=== PATIENT | female | born 1980 | race Caucasian/White ===

== ENCOUNTER 2020-09-04 13:31 | Emergency (ER) | payer OTHER, SELFPAY ==
--- NOTE | ~2020-09-04 | CT_ITS ---
EXAMINATION: CT abdomen pelvis wo con EXAM DATE: 09/04/2020 14:34 INDICATION: Flank pain, vomiting, hematuria. TECHNIQUE: Spiral CT of the abdomen and pelvis was performed without contrast. Axial, coronal and sag ittal images were reviewed. The dose-length product (DLP) for this examination was 173.21 mGy-cm. T he exposure was tailored according to patient size (auto mA exposure control), and iterative reconstr uction (ASIR) was used as additional dose reduction technique. Comparison is made to prior examinatio n from 12/01/2014. FINDINGS: There is moderate bilateral perinephric fat stranding without nephrolithiasis or hydronephr osis. This could indicate bilateral pyelonephritis, recommend correlating with urinalysis. Finding is new compared to 2015. The uterus and ovaries are unremarkable, no adnexal mass. The bladder is unr emarkable. The liver, spleen, adrenal glands and pancreas are unremarkable. Gallbladder is unremark able. No biliary obstruction. There is no retroperitoneal or pelvic lymphadenopathy. The appendix is not positively visualized. There is no pericecal inflammatory change to suggest appe ndicitis. The stomach and small bowel are unremarkable. There is expected amount of colonic stool. No free intraperitoneal gas. The heart is normal in size. There are no pericardial or pleural e ffusions. The lung bases are unremarkable. There are no osteoblastic or osteolytic lesions identifi ed. IMPRESSION: Moderate bilateral perinephric fat stranding could indicate pyelonephritis. Correlate wit h urinalysis. No hydronephrosis. Reviewed, dictated and finalized at location A. IMPRESSION: Moderate bilateral perinephric fat stranding could indicate pyelone phritis. Correlate with urinalysis. No hydronephrosis.
[2020-09-04 13:52] LABS: Basophils Percent Auto 0.3 % (0.2-1.2); Eosinophils Absolute Auto 0.1 K/mm3 (0-0.3); Eosinophils Percent Auto 0.4 % (0-4.4); Hematocrit 40.9 % (37.0-47.0); Hemoglobin 13.7 g/dL (12.0-15.0); Immature Granulocyte Absolute 0.06 K/mm3 (0.00-0.031); Immature Granulocyte Percent A 0.4 % (0-0.5); Lymphocytes Absolute Auto 1.44 K/mm3 (0.9-3.2); Mean Corpuscular HGB Conc 33.5 g/dl (32-36); Mean Corpuscular Hemoglobin 29.9 pg (26-34); Mean Corpuscular Volume 89.3 fl (80-100); Mean Platelet Volume 9.6 fl (7.4-10.4); Monocytes Absolute Auto 1.2 K/mm3 (0.1-0.6); Monocytes Percent Auto 8.4 % (2.6-8.5); Neutrophils Absolute Auto 11.6 K/mm3 (1.3-6.7); Neutrophils Percent Auto 80.5 % (45.5-73.1); Platelet Count Result 238 k/mm3 (150-375); Red Blood Count 4.58 M/mm3 (4.2-5.4); Red Cell Distribution Width 12.2 % (11.5-14.5); White Blood Count 14.5 K/mm3 (4.5-10.0)
[2020-09-04 13:55] VITALS: BP 124/64; PULSE 79; RESP 14; TEMP 36.2; O2SAT 99
[2020-09-04 13:56] LABS: Add Urine Microscopic? YES; Appearance Urine Cloudy (Clear); Bacteria Urine Trace /hpf; Bilirubin Urine Negative (Negative); Blood Urine 1+ (Negative); Color Urine Amber (Yellow); Glucose Urine UA Negative (Negative); Ketones Urine Negative (Negative); Leukocyte Esterase Ur Negative LEU/UL (Negative); Mucus Urine Rare /lpf; Nitrate Urine Positive (Negative); Protein Urine 2+ mg/dL (Negative); Specific Grav Ur 1.009 (1.001-1.035); Squamous Epithelial Cell Urine Many /hpf (Few); WBC Urine 0-3 /hpf
--- NOTE | 2020-09-04 14:02 | ED.BACK ---
HPI - Back Pain/Injury General Chief Complaint: Back Pain/Injury Stated Complaint: flank pain Time Seen by Provider: 09/04/20 13:45 Source: patient Mode of arrival: ambulatory Limitations: no limitations History of Present Illness HPI Narrative: This is a 40 year old female that presents to the ER for flank pain x 2 days. Then pain is sharp. It is a dull ache and intermittently more sharp. It is worse with certain movement. Associated with nausea and vomiting. Also reports some diarrhea. Denies fever, dysuria, or hematuria. Related Data Allergies Allergy/AdvReac Type Severity Reaction Status Date / Time Penicillins Allergy Unknown Verified 02/17/19 11:19 Review of Systems Review of Systems: Narrative: CONSTITUTIONAL: Denies fever RESPIRATORY: Denies cough or dyspnea. GASTROINTESTINAL: Reports abdominal pain, nausea, vomiting, and diarrhea. GENITOURINARY: Denies dysuria or hematuria. MUSCULOSKELETAL: Reports back pain, joint pain, and myalgia. NEUROLOGIC: Denies numbness, or weakness. All systems reviewed & are unremarkable except as noted in HPI and below PMFSH Past Medical History Medical History (Updated 09/04/20 @ 15:28 by Pina Akhtar PA-C) No active medical problems Surgical History Surgical History (Updated 09/04/20 @ 14:05 by Pina Akhtar PA-C) History of appendectomy Social History Social History (Updated 09/04/20 @ 14:05 by Pina Akhtar PA-C) Smoking status: Current every day smoker Exam Narrative: Exam Narrative: GENERAL: Well-appearing, well-nourished, and in no acute distress. HEAD: Normocephalic, atraumatic. EYES: EOMI. CHEST: Clear to auscultation. No respiratory distress. No wheezes rales or rhonchi HEART: Regular rate and rhythm. No murmur heard. Normal peripheral pulses. ABDOMEN: Soft, nondistended, normal active bowel sounds. Mild tenderness to palpation throughout the abdomen, without guarding. Bilateral CVA tenderness EXTREMITIES: Normal range of motion. No edema. Strength equal in bilateral lower extremities (5/5). Normal DP pulses SKIN: Warm, dry, no rash. NEURO: No focal deficits. Alert and oriented x3. PSYCH: Normal mood and affect Course Vital Signs Vital signs: Vital Signs Temperature 97.1 F L 09/04/20 13:55 Pulse Rate 79 09/04/20 13:55 Respiratory Rate 14 09/04/20 13:55 Blood Pressure 124/64 09/04/20 13:55 Pulse Oximetry 99 09/04/20 13:55 Temperature 97.1 F L 09/04/20 13:55 Pulse Rate 70 09/04/20 15:14 Respiratory Rate 12 09/04/20 15:14 Blood Pressure 104/47 L 09/04/20 15:14 Pulse Oximetry 99 09/04/20 15:14 MDM - Back Pain/Injury MDM Narrative Medical decision making narrative: Patient presents the emergency department for flank pain and vomiting. She is afebrile and nontoxic-appearing. CBC does show leukocytosis to 14.5. Metabolic panel with likely decrease in kidney function, although we do not have any recent labs on this patient. UA does show possible evidence of infection. This will be sent for culture. Bedside test is negative. CT scan of the abdomen and pelvis shows findings consistent with pyelonephritis. No hydronephrosis or evidence of kidney stone. Patient hydrated while in the ED and started on IV antibiotics. She is stable and felt appropriate for further outpatient evaluation. She is to follow-up with primary care doctor. She was given warnings to return to the ER Lab Data Attestation: I reviewed the patient's lab results. Result diagrams: 09/04/20 13:44 09/04/20 13:44 Labs: Lab Results 09/04/20 09/04/20 09/04/20 Range/Units 13:41 13:44 13:44 WBC 14.5 H (4.5-10.0) K/mm3 RBC 4.58 (4.2-5.4) M/mm3 Hgb 13.7 (12.0-15.0) g/dL Hct 40.9 (37.0-47.0) % MCV 89.3 (80-100) fl MCH 29.9 (26-34) pg MCHC 33.5 (32-36) g/dl RDW 12.2 (11.5-14.5) % Plt Count 238 (150-375) k/mm3 MPV 9.6 (7.4-10.4) fl Immature Gran % (Auto)
[2020-09-04 14:03] LABS: Anion Gap 6 mmol/L (8-16); Blood Urea Nitrogen 24 mg/dL (7-17); Calcium 9.4 mg/dL (8.4-10.2); Carbon Dioxide 27 mmol/L (22-30); Chloride 106 mmol/L (98-107); Estimated Glomerular Filt Rate 34; Glucose 98 mg/dL (65-105); Potassium 3.9 mmol/L (3.4-5.0); Sodium 139 mmol/L (137-145)
[2020-09-04] MEDS: SODIUM CHLORIDE 0.9% IV 1,000 ML 999 ML IV CONT ×2 (14:28→15:16)
[2020-09-04] MEDS: ONDANSETRON INJ 4 MG/2 ML VIAL IV PUSH (14:28)
[2020-09-04 14:36] LABS: Alanine Aminotransferase 18 U/L (4-35); Albumin Level 4.4 g/dL (3.5-5.1); Alkaline Phosphatase 69 U/L (38-126); Aspartate Amino Transferase 32 U/L (14-36); Bilirubin,Total 0.5 mg/dL (0.2-1.3); Lipase 50 U/L (23-300)
[2020-09-04 15:14] VITALS: BP 104/47; PULSE 70; RESP 12; O2SAT 99
[2020-09-04 16:16] VITALS: BP 104/71; PULSE 62; RESP 14; O2SAT 99
== END 2020-09-04 16:02 | disposition home or self-care (01) ==
PROVIDERS: Emergency Medicine; Physician Assistant; Emergency Provider Emergency Medicine
DX: N12 Tubulo-interstitial nephritis, not specified as acute or chronic (principal); F17.200 Nicotine dependence, unspecified, uncomplicated
CPT/HCPCS: 36415; 74176; 80048; 80076; 81001; 81025; 83690; 85025; 87086; 96361; 96365; 96375; 99284; J0131; J0696; J2405; J7030

== ENCOUNTER 2022-04-13 11:55 | Emergency (ER) | payer OTHER, SELFPAY ==
[2022-04-13 12:19] VITALS: BP 106/57; PULSE 92; RESP 16; TEMP 38.1; O2SAT 98
--- NOTE | 2022-04-13 12:35 | ED.URI ---
HPI - URI/Sore Throat General Chief Complaint: Upper Respiratory Infection Stated Complaint: VOMITING/NAUSEA/FEVER/HEADACHE/SORE THROAT/COUGH Time Seen by Provider: 04/13/22 12:35 Source: patient Mode of arrival: ambulatory Limitations: no limitations History of Present Illness HPI Narrative: 41-year-old female presents with complaint nausea, fatigue, fever, body aches, chills, coughing congestion, headaches for approximately 48 hours. Taking [id number] medications to treat her symptoms. No diarrhea. No chest pain or shortness of breath. Patient would like to be tested for flu. All systems reviewed and negative except as noted above. Related Data Allergies Allergy/AdvReac Type Severity Reaction Status Date / Time Penicillins Allergy Unknown Other Verified 04/13/22 12:12 Review of Systems Review of Systems: CONSTITUTIONAL: Reports fever, chills, or sweats. EYES: Denies visual changes, redness, or discharge. ENT: Reports rhinorrhea, congestion, sore throat, or otalgia. CARDIOVASCULAR: Denies chest pain, palpitations, or edema. RESPIRATORY: Reports cough. Denies dyspnea. GASTROINTESTINAL: Denies abdominal pain, vomiting, or diarrhea. Reports nausea. GENITOURINARY: Denies dysuria or hematuria. SKIN: Denies rash or itching. MUSCULOSKELETAL: Denies back pain, joint pain, or myalgia. NEUROLOGIC: Denies headache, numbness, or weakness. PSYCHIATRIC: Denies anxiety or depression. All other systems reviewed are negative, except as documented in HPI. [facility] Past Medical History Medical History (Updated 04/13/22 @ 12:41 by Griselda Taylor NP) No active medical problems Surgical History Surgical History (Updated 09/04/20 @ 14:05 by Pina Akhtar PA-C) History of appendectomy Social History Social History (Updated 09/04/20 @ 14:05 by Pina Akhtar PA-C) Smoking status: Current every day smoker Comments At time of signature, agree with nursing past medical, surgical, social and family history. There is no relevant family history pertinent to the presenting complaint. Exam Narrative: GENERAL: This is a well-nourished, well-developed patient. Patient is ill-appearing but in no distress. HEAD: normocephalic, atraumatic. EYES: PERRL. Sclera clear/white. Vision is grossly intact. EARS: External ears normal, auditory canals clear and without drainage, TMs normal without perforation. Hearing grossly intact. NOSE: External nose normal with clear nasal drainage, THROAT: Mucous membranes moist, mild erythema to posterior pharynx. NECK: Neck supple, non-tender without lymphadenopathy, masses or thyromegaly. CARDIOVASCULAR: Regular rate and rhythm without murmurs, gallops, or rubs. RESPIRATORY: Clear to auscultation. Breath sounds equal bilaterally. No wheezes, rales, or rhonchi. Delete SKIN: warm, Dry, intact with no suspicious lesions or rash, good texture and turgor. NEURO: awake, alert, and oriented to person, place and time. There were no obvious focal neurologic abnormalities. EXTREMITIES: No joint tenderness, effusion, or edema noted. Course Course Level of Care: Express Care Visit Vital Signs Vital signs: Vital Signs Temperature 38.1 C H 04/13/22 12:19 Pulse Rate 92 04/13/22 12:19 Respiratory Rate 16 04/13/22 12:19 Blood Pressure 106/57 L 04/13/22 12:19 Pulse Oximetry 98 04/13/22 12:19 Temperature 38.1 C H 04/13/22 12:19 Pulse Rate 92 04/13/22 12:19 Respiratory Rate 16 04/13/22 12:19 Blood Pressure 106/57 L 04/13/22 12:19 Pulse Oximetry 98 04/13/22 12:19 Reviewed MDM - URI/Sore Throat MDM Narrative Medical decision making narrative: Positive influenza. Prescribed Tamiflu. Discussed medication with patient. Patient is aware of diagnosis, understands and agrees to treatment plan. Anticipatory guidance given. Patient agrees to follow-up as directed and is aware of reasons to seek care at the emergency department. Portions of this record may have bee
== END 2022-04-13 13:08 | disposition home or self-care (01) ==
PROVIDERS: Emergency Provider Nurse Practitioner Family
DX: J10.1 Influenza due to other identified influenza virus with other respiratory manifestations (principal); F17.200 Nicotine dependence, unspecified, uncomplicated
CPT/HCPCS: 87804; 99213; G0463

== ENCOUNTER 2022-07-01 09:38 | Emergency (ER) | payer OTHER, SELFPAY ==
[2022-07-01 09:45] VITALS: BP 105/76; PULSE 79; RESP 16; TEMP 37; O2SAT 100
--- NOTE | 2022-07-01 09:50 | ED.GENADULT ---
HPI - General Adult General Chief complaint: Urogenital-Female Stated complaint: uti, pulled muscle neck/shoulder Source: patient Mode of arrival: ambulatory Limitations: no limitations History of Present Illness HPI narrative: Patient presents for evaluation of urinary symptoms and neck pain. She indicates she developed urinary symptoms yesterday which include dysuria, urinary frequency and hesitancy. She denies any fever, chills, nausea, vomiting, abdominal pain, low back pain. No vaginal bleeding or discharge. She has been taking cranberry pills for her symptoms. She also reports left sided neck pain yesterday. 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 She states a shelf was falling and she attempted to reach back to catch it. She felt pain in the left side of her neck. She states pain is 9/10 in severity and shoots into the left shoulder. No paresthesias. No loss of range of motion over movement makes her pain worse. No additional complaints or concerns. Related Data Allergies Allergy/AdvReac Type Severity Reaction Status Date / Time Penicillins Allergy Unknown Other Verified 07/01/22 09:43 Review of Systems Review of Systems: CONSTITUTIONAL: Denies fever, chills, or sweats. EYES: Denies visual changes, redness, or discharge. ENT: Denies rhinorrhea, congestion, sore throat, or otalgia. CARDIOVASCULAR: Denies chest pain, palpitations, or edema. RESPIRATORY: Denies cough or dyspnea. GASTROINTESTINAL: Denies abdominal pain, nausea, vomiting, or diarrhea. GENITOURINARY: Reports urinary frequency, hesitancy, dysuria. Denies suprapubic pain. Denies hematuria or vaginal bleeding/discharge. SKIN: Denies rash or itching. MUSCULOSKELETAL: Reports left-sided neck pain with radiation into the shoulder. NEUROLOGIC: Denies headache, numbness, dizziness, or weakness. PSYCHIATRIC: Denies anxiety or depression. [facility] Past Medical History Medical History No active medical problems Surgical History Surgical History History of appendectomy Family History Family History Mother Family history non-contributory Social History Social History Smoking status: Current every day smoker Substance use: never Living arrangements: with family Gender identity (if verbalized by the patient): Female Sexual Orientation (if Verbalized by the Patient): Straight or Heterosexual Spiritual care concerns: No Exam Narrative: GENERAL: Well-appearing, well-nourished, and in no acute distress. HEAD: Normocephalic, atraumatic. EYES: PERRLA and EOMI. ENT: Nares clear, no rhinorrhea or epistaxis. Mucous membranes moist. Oropharynx without tonsillar hypertrophy exudate or other lesions. Bilateral TMs pearly kingsley nonbulging NECK: Supple. No adenopathy or masses. No carotid bruits or JVD. tenderness over left lateral musculature of the neck. No tenderness in midline or paraspinous muscles of the cervical spine. Full range of motion of the neck intact. CHEST: Clear to auscultation. No respiratory distress. No wheezes rales or rhonchi HEART: Regular rate and rhythm. No murmur heard. Normal peripheral pulses. ABDOMEN: Soft, nontender, nondistended, normal active bowel sounds. EXTREMITIES: Normal range of motion. No edema. SKIN: Warm, dry, no rash. NEURO: No focal deficits. Alert and oriented x3. PSYCH: Normal mood and affect. Course Course Emergency Course: This is a 41-year-old female who presented for evaluation of neck pain and urinary symptoms. I did offer to check imaging of her neck, which she declined. I think this is reasonable as she has no posterior neck pain or tenderness. Will give her scripts for ibuprofen and Flexeril. In terms of her urinary symptoms, she is nitrate positive u
== END 2022-07-01 09:55 | disposition home or self-care (01) ==
PROVIDERS: Emergency Provider Nurse Practitioner
DX: S16.1XXA Strain of muscle, fascia and tendon at neck level, initial encounter (principal); X50.0XXA Overexertion from strenuous movement or load, initial encounter; Y99.0 Civilian activity done for income or pay; N39.0 Urinary tract infection, site not specified; F17.200 Nicotine dependence, unspecified, uncomplicated
CPT/HCPCS: 81003; 87086; 87088; 99213; G0463

== ENCOUNTER 2022-11-15 18:02 | Emergency (ER) | payer OTHER, SELFPAY ==
--- NOTE | ~2022-11-15 | CT_ITS ---
EXAMINATION: CT abdomen pelvis wo con DATE: 11/15/2022 18:54 INDICATION: Bilateral flank pain TECHNIQUE: Computed tomography (CT) of the abdomen and pelvis was performed without intravenous contr ast. The dose-length product (DLP) was 261.67 mGy-cm. Automated exposure control and iterative recons truction technique were employed. COMPARISON: 09/04/2020 FINDINGS: Minimal dependent atelectasis is present in the lung bases. The heart size is normal. The l iver, spleen, pancreas, gallbladder, and adrenal glands are normal. The kidneys are unremarkable. No stones are identified in the kidneys, ureters, or bladder. No hydronephrosis or hydroureter. No patho logically enlarged abdominal or pelvic lymph nodes are identified. No free intraperitoneal gas or gwen dence of bowel obstruction. A large volume of colonic stool is present. There is mild lumbar spondylo sis. IMPRESSION: 1. Constipation. Reviewed, dictated and finalized at location F. IMPRESSION: 1. Constipation.
[2022-11-15 18:06] VITALS: BP 116/61; PULSE 69; RESP 16; TEMP 36.6; O2SAT 100
[2022-11-15] MEDS: oxyCODONE/ACETAMINOPHEN (*CRX) 5-325 MG TABLET 1 TABLET PO (18:40)
--- NOTE | 2022-11-15 18:44 | ED.GENADULT ---
HPI - General Adult General Chief complaint: Urogenital-Female Stated complaint: possible kidney infection Time Seen by Provider: 11/15/22 18:16 History of Present Illness HPI narrative: This is a 42-year-old female with past history of appendicitis status post appendectomy, who presents to the emergency department complaining of back pain for the past week. The patient states the pain is sharp, rated 9/10, present in the bilateral lower back without radiation. She states her pain is aggravated by movement. Related Data Allergies Allergy/AdvReac Type Severity Reaction Status Date / Time Penicillins Allergy Unknown Other Verified 11/15/22 18:31 Review of Systems Review of Systems: CONSTITUTIONAL: Denies fever, chills, or sweats. CARDIOVASCULAR: Denies chest pain, palpitations, or edema. RESPIRATORY: Denies cough or dyspnea. GASTROINTESTINAL: Denies abdominal pain, nausea, vomiting, or diarrhea. GENITOURINARY: Denies dysuria or hematuria. SKIN: Denies rash or itching. MUSCULOSKELETAL: Bilateral low back pain denies joint pain, or myalgia. NEUROLOGIC: Denies headache, numbness, dizziness, or weakness. PSYCHIATRIC: Denies anxiety or depression. PMFSH Past Medical History Medical History No active medical problems Surgical History Surgical History History of appendectomy Family History Family History Mother Family history non-contributory Social History Social History Smoking status: Current every day smoker Substance use: never Living arrangements: with family Gender identity (if verbalized by the patient): Female Sexual Orientation (if Verbalized by the Patient): Straight or Heterosexual Spiritual care concerns: No Exam Narrative: GENERAL: Well-developed, well-nourished, and in no acute distress. HEAD: Normocephalic, atraumatic. EYES: PERRLA and EOMI. ENT: Nares clear, no rhinorrhea or epistaxis. Mucous membranes moist. Oropharynx without tonsillar hypertrophy exudate or other lesions. NECK: Supple. No midline spine tenderness to palpation, no step-off or crepitus CHEST: Clear to auscultation. No respiratory distress. No wheezes rales or rhonchi HEART: Regular rate and rhythm. No murmur heard. Normal peripheral pulses. ABDOMEN: Soft, nontender, nondistended, normal active bowel sounds. Left CVA tenderness to palpation. No CVA tenderness on palpation to the right EXTREMITIES: Normal range of motion. No edema. BACK: Bilateral paraspinal tenderness to palpation from L3-L5. SKIN: Warm, dry, no rash. NEURO: No focal deficits. Alert and oriented x3. PSYCH: Normal mood and affect. Course Course Emergency Course: 19:45 - Chemistries demonstrate mild hypokalemia at 3.3. CBC unremarkable. UA demonstrates RBCs and calcium oxalate crystals but is otherwise not concerning for UTI. CT abdomen pelvis demonstrates changes consistent with constipation but is otherwise unremarkable. On reevaluation, the patient states her pain is improved. I suspect the patient either passed a stone or her pain is related to muscle spasm. We will treat with muscle relaxants and discharge. The patient has a prescription for muscle relaxer from a urgent care visit earlier today. Discussed return and emergency precautions including signs/symptoms of acute abdomen or cauda equina. The patient voiced understanding and is comfortable with the plan. All questions answered to her satisfaction. Vital Signs Vital signs: Vital Signs Temperature 97.9 F 11/15/22 18:06 Pulse Rate 69 11/15/22 18:06 Respiratory Rate 16 11/15/22 18:06 Blood Pressure 116/61 11/15/22 18:06 Pulse Oximetry 100 11/15/22 18:06 Oxygen Delivery Room Air 11/15/22 18:06 Temperature 97.9 F 11/15/22 18:0
[2022-11-15 18:48] LABS: Add Urine Microscopic? YES; Appearance Urine Turbid (Clear); Bacteria Urine None Seen /hpf; Bilirubin Urine Negative (Negative); Blood Urine Negative (Negative); Calcium Oxalate Crystals Urine Present /hpf; Color Urine Dark Yellow (Yellow); Glucose Urine UA Negative (Negative); Ketones Urine Trace mg/dL (Negative); Leukocyte Esterase Ur Negative LEU/UL (Negative); Need Manual Microscopic Reviewed; Nitrate Urine Negative (Negative); Non Pathogenic Casts 0-2; Protein Urine Trace mg/dL (Negative); Specific Grav Ur 1.041 (1.001-1.035); Squamous Epithelial Cell Urine Few /hpf (Few); WBC Urine 0-5 /hpf
[2022-11-15 19:15] LABS: Basophils Percent Auto 0.4 % (0.2-1.2); Eosinophils Absolute Auto 0.2 K/mm3 (0-0.3); Eosinophils Percent Auto 1.8 % (0-4.4); Hematocrit 39.6 % (37.0-47.0); Immature Granulocyte Absolute 0.03 K/mm3 (0.00-0.031); Immature Granulocyte Percent A 0.3 % (0-0.5); Lymphocytes Absolute Auto 2.13 K/mm3 (0.9-3.2); Lymphocytes Percent Auto 22.9 % (18.3-44.2); Mean Corpuscular HGB Conc 32.8 g/dl (32-36); Mean Corpuscular Hemoglobin 29.5 pg (26-34); Mean Platelet Volume 9.6 fl (7.4-10.4); Monocytes Absolute Auto 0.6 K/mm3 (0.1-0.6); Monocytes Percent Auto 6.9 % (2.6-8.5); Neutrophils Absolute Auto 6.3 K/mm3 (1.3-6.7); Neutrophils Percent Auto 67.7 % (45.5-73.1); Platelet Count Result 224 k/mm3 (150-375); Red Cell Distribution Width 12.2 % (11.5-14.5); White Blood Count 9.3 K/mm3 (4.5-10.0)
[2022-11-15 19:26] LABS: Anion Gap 7 mmol/L (8-16); Blood Urea Nitrogen 23 mg/dL (7-17); Calcium 9.2 mg/dL (8.4-10.2); Carbon Dioxide 29 mmol/L (22-30); Chloride 104 mmol/L (98-107); Estimated Glomerular Filt Rate > 60; Glucose 94 mg/dL (65-110); Potassium 3.3 mmol/L (3.4-5.0); Sodium 140 mmol/L (137-145)
[2022-11-15] MEDS: CYCLOBENZAPRINE HCL 5 MG TABLET PO (19:55)
[2022-11-15 19:59] VITALS: BP 124/78; PULSE 88; RESP 18; O2SAT 99
== END 2022-11-15 20:00 | disposition home or self-care (01) ==
PROVIDERS: Emergency Provider Preventive Medicine Aerospace Medicine
DX: M54.50 Low back pain, unspecified (principal); M62.830 Muscle spasm of back; F17.200 Nicotine dependence, unspecified, uncomplicated
CPT/HCPCS: 36415; 74176; 80048; 81001; 81025; 85025; 99284; A9270

== ENCOUNTER 2023-03-11 16:41 | Outpatient (CLI) | payer OTHER, SELFPAY ==
--- NOTE | ~2023-03-11 | XR_ITS ---
XR lumbar spine 2-3V DATE: 03/11/2023 17:23 INDICATION: Low back pain for 2 to 3 months. No injury. TECHNIQUE: AP, lateral, coned lateral lumbosacral views COMPARISON: None FINDINGS: Normal alignment of the lumbar spine. There is minimal degenerative spurring. Interspace he ights are relatively well preserved. The included lower thoracic and lumbar pedicles are intact. No f racture or bone destruction or spondylolisthesis. The sacroiliac joints are intact. Prominent of fecal material in the colon. IMPRESSION: Minimal degenerative change Reviewed, dictated and finalized at location L. IMPRESSION: Minimal degenerative change
[2023-03-11 17:40] LABS: Anion Gap 9 mmol/L (8-16); Blood Urea Nitrogen 12 mg/dL (7-17); Calcium 9.1 mg/dL (8.4-10.2); Carbon Dioxide 29 mmol/L (22-30); Chloride 98 mmol/L (98-107); Cholesterol 169 mg/dL (0-200); Estimated Glomerular Filt Rate > 60; Glucose 92 mg/dL (65-110); HDL Direct 46 mg/dL; Potassium 3.4 mmol/L (3.4-5.0); Sodium 136 mmol/L (137-145); Triglycerides 99 mg/dL (<150)
[2023-03-11 17:51] LABS: LDL Cholesterol Direct 95 mg/dL
[2023-03-11 18:05] LABS: Appearance Urine Clear (Clear); Bilirubin Urine Negative (Negative); Blood Urine Negative (Negative); Color Urine Yellow (Yellow); Glucose Urine UA Negative (Negative); Ketones Urine Negative (Negative); Leukocyte Esterase Ur Negative LEU/UL (NEGATIVE); Nitrate Urine Negative (Negative); Protein Urine Negative (Negative); Specific Grav Ur 1.012 (1.001-1.035); Urobilinogen Urine 0.2 mg/dL (<2.0)
[2023-03-11 18:11] LABS: Add Urine Microscopic? NO
[2023-03-11 18:50] LABS: Free T4 Free Thyroxine 0.75 ng/mL (0.78-2.19); Vitamin D 25 Hydroxy 31.5 ng/mL
[2023-03-11 21:42] LABS: Hemoglobin A1C 4.6 % (<5.7)
[2023-03-12 07:32] LABS: Creatinine Urine 66.4 mg/dL
[2023-03-12 07:37] LABS: MALB Creatinine Ratio < 9.0 mg/g (0-30); Microalbumin Urine Random < 6.0 mg/L (0-16.7)
== END 2023-03-11 16:42 | disposition home or self-care (01) ==
PROVIDERS: Visit Provider Emergency Medicine
DX: M54.50 Low back pain, unspecified (principal)
CPT/HCPCS: 36415; 72100; 80048; 80061; 81003; 82043; 82306; 83036; 84439; 84443

== ENCOUNTER 2023-12-27 13:45 | Outpatient (CLI) | payer OTHER, SELFPAY ==
[2023-12-27 15:16] LABS: Free T4 Free Thyroxine 0.91 ng/mL (0.78-2.19)
[2023-12-30 14:48] LABS: Thyroid Peroxidase Antibodies <1 IU/mL (<9)
[2023-12-31 16:23] LABS: H pylori, Urea Breath NOT DETECTED (NOT DETECTED)
== END 2023-12-27 13:46 | disposition home or self-care (01) ==
LOC: ANHLAB 13:47
PROVIDERS: PCP Emergency Medicine; Visit Provider Emergency Medicine
DX: Z00.00 Encounter for general adult medical examination without abnormal findings (principal); R12 Heartburn
CPT/HCPCS: 36415; 83013; 84439; 84443; 86376